=== PATIENT | male | born 2000 | race Asian ===

== ENCOUNTER 2022-01-03 06:27 | Emergency (ER) | payer OTHER ==
[~2022-01-03] VITALS: Ht 175.3 cm; Wt 102.1 kg
[2022-01-03 06:51] VITALS: BP 165/107
--- NOTE | 2022-01-03 07:16 | NUR ---
Patient discharged to home in stable condition. Written and verbal after care instructions given. Patient verbalizes understanding of instruction. pt ambulatory with a steady gait
== END 2022-01-03 07:16 | disposition home or self-care (01) ==
LOC: ER 06:32
DX: R04.0 Epistaxis (principal); R11.2 Nausea with vomiting, unspecified; Z88.0 Allergy status to penicillin; Z60.2 Problems related to living alone